=== PATIENT | male | born 1945 | race Caucasian/White ===

== ENCOUNTER 2022-11-24 14:52 | Inpatient (IN) | payer OTHER, MEDICARE ==
[2022-11-24] MEDS ORDERED: Iopamidol 612 MG/ML 100 ML Bottle IVPUSH ONE (15:39)
[2022-11-24 18:08] LABS: ANION GAP 10.1 mEq/L (7-13); CHLORIDE,CL 101 mmol/L (98-107); SODIUM,NA 135 mmol/L (136-145)
[2022-11-24 18:09] LABS: ESTIMATED GFR 76 mL/min (>=60)
[2022-11-24] MEDS ORDERED: cefTRIAXone 2 GM Vial IVPUSH ONE (18:28)
[2022-11-24] MEDS ORDERED: Sodium Chloride 0.9% 1,000 ML IV ONE (18:30)
[2022-11-24 19:00] LABS: CORONAVIRUS COVID-19 NAA NEGATIVE (NEGATIVE); RESPIRATORY SYNCYTIAL VIR NAA NEGATIVE (NEGATIVE)
[2022-11-24] MEDS ORDERED: Ondansetron 4 MG/2 ML SDV IVPUSH PRN (20:06)
[2022-11-24] MEDS ORDERED: Docusate Sodium 100 MG Cap PO PRN (20:06)
[2022-11-24] MEDS ORDERED: Sodium Chloride 0.9% 10 ML Syringe FLUSH PRN (20:06)
[2022-11-24] MEDS ORDERED: Ondansetron 4 MG Tab.DIS PO PRN (20:06)
[2022-11-24] MEDS ORDERED: Acetaminophen 650 MG Supp RECTAL PRN (20:06)
[2022-11-24] MEDS ORDERED: Acetaminophen 325 MG Tab PO PRN (20:06)
[2022-11-24] MEDS: Cefepime 1 GM in Sodium Chloride 0.9% 50 ML IV SCH (21:43)
[2022-11-24] MEDS: Heparin Sodium 5,000 Units/ML Vial SUBCUT SCH (21:46)
[2022-11-24] MEDS: Sodium Chloride 0.9% 1,000 ML IV SCH (21:47)
[2022-11-24] MEDS: Sodium Chloride 0.9% 10 ML Syringe FLUSH SCH (21:54)
[2022-11-25] MEDS: Cefepime 1 GM in Sodium Chloride 0.9% 50 ML IV SCH ×3 (06:14→21:09)
[2022-11-25] MEDS: Sodium Chloride 0.9% 1,000 ML IV SCH ×2 (06:14→17:09)
[2022-11-25] MEDS: Heparin Sodium 5,000 Units/ML Vial SUBCUT SCH ×3 (06:14→21:09)
[2022-11-25 06:51] LABS: ANION GAP 11.2 mEq/L (7-13)
[2022-11-25] MEDS ORDERED: Albuterol 6.7 GM Inhaler INH PRN (11:25)
[2022-11-25] MEDS ORDERED: oxyCODONE 5 MG Tab PO PRN (11:25)
[2022-11-25] MEDS ORDERED: Acetaminophen 325 MG Tab PO PRN (11:25)
[2022-11-25] MEDS: Sodium Chloride 0.9% 10 ML Syringe FLUSH SCH ×2 (11:35→20:53)
[2022-11-25] MEDS ORDERED: Patient's Own Medication 1 Each SL SCH (14:00)
[2022-11-25] MEDS ORDERED: SENNOSIDES 8.6 MG PO SCH (21:00)
[2022-11-26] MEDS: Sodium Chloride 0.9% 1,000 ML IV SCH (02:08)
[2022-11-26] MEDS: Cefepime 1 GM in Sodium Chloride 0.9% 50 ML IV SCH ×3 (05:32→21:33)
[2022-11-26] MEDS: TENOFOVIR DISOPROXIL FUMARATE PO SCH (05:37)
[2022-11-26] MEDS: EFAVIRENZ PO SCH (05:37)
[2022-11-26] MEDS: Heparin Sodium 5,000 Units/ML Vial SUBCUT SCH ×3 (05:37→21:35)
[2022-11-26] MEDS: EMTRICITABINE PO SCH (05:37)
[2022-11-26] MEDS: BICALUTAMIDE 50 MG PO SCH (08:28)
[2022-11-26] MEDS: Omeprazole 20 MG Cap.CR PO SCH (08:29)
[2022-11-26] MEDS: Dexamethasone 4 MG Tab PO SCH (08:29)
[2022-11-26] MEDS: Aspirin 81 MG Tab.EC PO SCH (08:29)
[2022-11-26] MEDS: Finasteride 5 MG Tab PO SCH (08:29)
[2022-11-26] MEDS: Sodium Chloride 0.9% 10 ML Syringe FLUSH SCH ×2 (08:30→21:34)
[2022-11-27] MEDS: Heparin Sodium 5,000 Units/ML Vial SUBCUT SCH (05:55)
[2022-11-27] MEDS: Cefepime 1 GM in Sodium Chloride 0.9% 50 ML IV SCH (05:55)
[2022-11-27] MEDS: EFAVIRENZ PO SCH (06:03)
[2022-11-27] MEDS: EMTRICITABINE PO SCH (06:03)
[2022-11-27] MEDS: TENOFOVIR DISOPROXIL FUMARATE PO SCH (06:03)
[2022-11-27] MEDS: Finasteride 5 MG Tab PO SCH (08:07)
[2022-11-27] MEDS: Aspirin 81 MG Tab.EC PO SCH (08:07)
[2022-11-27] MEDS: Dexamethasone 4 MG Tab PO SCH (08:07)
[2022-11-27] MEDS: Omeprazole 20 MG Cap.CR PO SCH (08:07)
[2022-11-27] MEDS: BICALUTAMIDE 50 MG PO SCH (08:12)
[2022-11-27] MEDS: Sodium Chloride 0.9% 10 ML Syringe FLUSH SCH (08:14)
[2022-11-27] MEDS ORDERED: Pneumococcal Polyvalent-23 Vaccine 0.5 ML SDV IM ONE (09:00)
== END 2022-11-27 12:30 | disposition home or self-care (01) | DRG 71 ==
LOC: DL.ED 14:52 → DL.MS 19:22 → OBSVTOIN 11-27 12:01
PROVIDERS: ADMIT Hospitalist; ATTEND Hospitalist
DX: G93.49 Other encephalopathy (principal); R41.82 Altered mental status, unspecified; C34.90 Malignant neoplasm of unspecified part of unspecified bronchus or lung; D72.829 Elevated white blood cell count, unspecified; R65.10 Systemic inflammatory response syndrome (SIRS) of non-infectious origin without acute organ dysfunction; Z21 Asymptomatic human immunodeficiency virus [HIV] infection status; Z20.822 Contact with and (suspected) exposure to COVID-19; K22.70 Barrett's esophagus without dysplasia; C79.9 Secondary malignant neoplasm of unspecified site; F17.200 Nicotine dependence, unspecified, uncomplicated; Z85.46 Personal history of malignant neoplasm of prostate; B20 Human immunodeficiency virus [HIV] disease; R29.6 Repeated falls; J44.9 Chronic obstructive pulmonary disease, unspecified; K21.9 Gastro-esophageal reflux disease without esophagitis; F17.210 Nicotine dependence, cigarettes, uncomplicated; Z66 Do not resuscitate; Z79.899 Other long term (current) drug therapy
CPT/HCPCS: 0241U; 36415; 70470; 71045; 80053; 80202; 80307; 81001; 82140; 82550; 83605; 83735; 83880; 84484; 85025; 86140; 90471; 90662; 90732; 93005; 93010; 96361; 96365; 96366; 96367; 96372; 96375; 96376; 99220; 99226; 99239; 99285; 96374; A9270-GY; C1758; G0008; G0009; G0378; J0692; J0696; J1644; J3370; J3490; J7030; J7050; J8540; Q9967

== ENCOUNTER 2022-12-28 19:05 | Emergency (ER) | payer OTHER, MEDICARE | END 2022-12-28 20:59 | disposition home or self-care (01) | LOC: DL.ED 19:05 | DX: M54.6 Pain in thoracic spine (principal); J44.9 Chronic obstructive pulmonary disease, unspecified; K21.9 Gastro-esophageal reflux disease without esophagitis | CPT/HCPCS: 72072; 99283 ==